=== PATIENT | female | born 1935 | race Caucasian/White ===

== ENCOUNTER 2021-02-20 16:18 | Inpatient (IN) | payer MEDICARE, BC ==
[~2021-02-20] VITALS: Ht 157.5 cm; Wt 62.1 kg
--- NOTE | 2021-02-20 16:41 | NUR ---
pili, sent by PMD for psych eval, takes zoya, son states "all of the sudden walks in the middle of the night, aaox3, breathing even and non labored, connected to monitor
--- NOTE | 2021-02-20 16:54 | NUR ---
URINE COLLECTED AND SENT TO LAB
--- NOTE | 2021-02-20 16:54 | NUR ---
lab at bedside
--- NOTE | 2021-02-20 17:05 | NUR ---
covid swab done and sent to lab
[2021-02-20 17:06] LABS: BASOPHILS # (AUTO) 0.1 K/uL (0.0-0.2); BASOPHILS % (AUTO) 0.7 % (0.0-2.0); EOSINOPHILS % (AUTO) 1.8 % (0.0-6.0); HEMATOCRIT 37 % (33-45); HEMOGLOBIN 11.6 g/dL (11.5-14.8); LYMPHOCYTES # (AUTO) 2.3 K/uL (0.8-4.8); MEAN CORPUSCULAR HGB CONC 32 g/dl (31.0-36.0); MEAN CORPUSCULAR VOLUME 91 fL (82-100); MONOCYTES # (AUTO) 0.8 K/uL (0.1-1.30); MONOCYTES % (AUTO) 8.4 % (2.0-12.0); NEUTROPHILS # (AUTO) 6.6 K/uL (1.8-8.9); NEUTROPHILS % (AUTO) 66.1 % (43.0-81.0); PLATELET COUNT (AUTO) 229 K/uL (150-450); RED BLOOD CELL COUNT(AUTO) 4.05 MIL/uL (4.0-5.2); WHITE BLOOD COUNT (AUTO) 9.9 K/uL (4.3-11.0)
[2021-02-20 17:19] LABS: CALCIUM, SERUM 8.7 mg/dL (8.5-10.1); CARBON DIOXIDE 30 mmol/L (21-32); CHLORIDE 107 mmol/L (98-107); CREATININE 1.2 mg/dL (0.6-1.3); GLUCOSE 129 mg/dL (74-106); POTASSIUM 4.1 mmol/L (3.5-5.1); SODIUM SERUM 142 mmol/L (136-145); UREA NITROGEN, BLOOD 21 mg/dL (7-18)
[2021-02-20 17:25] LABS: ALANINE AMINOTRANSFERASE 29 U/L (12-78); ALBUMIN 2.9 g/dL (3.4-5.0); ALCOHOL, BLOOD < 3 mg/dL (0-0); ALKALINE PHOSPHATASE 125 U/L (46-116); ASPARTATE AMINOTRANSFERASE 18 U/L (15-37); BILIRUBIN,DIRECT 0.1 mg/dL (0.0-0.2); BILIRUBIN,TOTAL 0.3 mg/dL (0.2-1.0)
--- NOTE | 2021-02-20 17:26 | NUR ---
DR NOVA AT BEDSIDE
[2021-02-20 17:30] LABS: BILIRUBIN,URINE NEGATIVE (NEGATIVE); COLOR,URINE YELLOW (YELLOW); LEUKOCYTE ESTERASE ,URINE NEGATIVE (NEGATIVE); NITRITE, URINE NEGATIVE (NEGATIVE); PROTEIN,URINE NEGATIVE (NEGATIVE); UGLUCOSE 500 MG/DL mg/dL (NEGATIVE); UROBILINOGEN,URINE 0.2 EU/dL (0.2)
[2021-02-20 17:32] LABS: ACETAMINOPHEN < 2 ug/ml (10-30)
--- NOTE | 2021-02-20 18:40 | NUR ---
CALLED CALENDER ROLL OPERATORANTOINETTE, AND LEFT VOICEMALE WITH PT STATUS
--- NOTE | 2021-02-20 19:13 | NUR ---
REPORT GIVEN TO SAMEERA LARA RN FOR MAURILIO
--- NOTE | 2021-02-20 19:14 | NUR ---
REC'D REPORT FROM CASSIDY ROACH FOR MAURILIO
--- NOTE | 2021-02-20 19:35 | NUR ---
ANTOINETTE CALLED BACK, STATES IS ON THE WAY
--- NOTE | 2021-02-20 21:31 | NUR ---
ANTOINETTE AT BEDSIDE
[2021-02-20] MEDS ORDERED: LORAZEPAM 1 MG TABLET PO ONE (22:00)
[2021-02-20] MEDS ORDERED: LORAZEPAM 0.5 MG TABLET ONE (22:06)
--- NOTE | 2021-02-20 22:41 | NUR ---
GAVE REPORT TO CASSIDY BOURGEOIS FOR MAURILIO
[2021-02-20 23:00] VITALS: BP 134/71
--- NOTE | 2021-02-20 23:00 | NUR ---
PT WS TRANSFERRED TO GPS UNIT IN STABLE CONDITION
--- NOTE | 2021-02-20 23:05 | NUR ---
GPS ADMISSION NOTE ADMITTED THIS 85-Y/O FEMALE, BIB FAMILY FROM HER HOME. ADMITTED ON 5150 FOR DTS/GD. PER HOLD, PT REPORTS SHE HAS NOT SLEPT IN DAYS AND REMEMBER SLEEP WALKING A COUPLE OF DAYS AGO. PT'S SON REPORTS THAT PT HAS HAVING INCREASE IN IRRITABILITY, NOT FOLLOWING DIRECTIVES AND RECENTLY LEFT THE HOME WITHOUT SUPERVISION AND WAS WALKING IN THE STREETS. UPON FACE TO FACE ASSESSMENT, PT IS ALERT AND ORIENTED X2, ANGRY MOOD, ARGUMENTATIVE, HYPERVERBAL, LOUD AND ANXIOUS. PT DENIES SI/HI/AVH AT THIS TIME. BOTH MD AWARE AND NOTIFIED OF THE ADMISSION. BELONGINGS AND CONTRABAND WERE DONE. SKIN ASSESSMENT DONE. WOUND CARE CONSULT TRIGGERED. PT'S RIGHTS DISCUSSED. PROVIDED PT WITH HANDBOOK AND MEDICATIONS GUIDE. ENVIRONMENTAL SAFETY CHECK DONE. VERBALIZATION OF FEELINGS ENCOURAGED. ORIENTED PT TO UNIT POLICY. NO ACUTE DISTRESS NOTED. VSS. PT DENIES ANY PAIN OR DISCOMFORT AT THIS TIME. BED IN LOWEST LOCKED POSITION, HOB ELEVATED, SIDE RAILS UP X2. WILL MONITOR Q15 MINS ROUNDS FOR SAFETY AND BEHAVIOR.
[2021-02-20] MEDS ORDERED: ONDA-97 PO (23:42)
[2021-02-21] MEDS ORDERED: MAGNESIUM HYDROXIDE 30 ML UDC PO PRN
[2021-02-21] MEDS ORDERED: MAG HYDROX/AL HYDROX/SIMETH 30 ML UDC PO PRN
[2021-02-21] MEDS ORDERED: DULO30CA52 PO (00:14)
[2021-02-21] MEDS ORDERED: ASCO-352 PO (00:17)
[2021-02-21] MEDS ORDERED: LISI-768 PO (00:18)
[2021-02-21] MEDS ORDERED: DIGO125T PO (00:19)
[2021-02-21] MEDS ORDERED: FAMO20TA8 PO (00:19)
[2021-02-21] MEDS ORDERED: PANT40TA49 PO (00:21)
[2021-02-21] MEDS ORDERED: MAGN400T8 PO (00:22)
[2021-02-21] MEDS: TEMAZEPAM 7.5 MG CAPSULE PO PRN (00:23)
[2021-02-21] MEDS ORDERED: DAPA10TA PO (00:23)
[2021-02-21] MEDS ORDERED: AMIO200T5 PO (00:24)
[2021-02-21] MEDS ORDERED: APIX5TAB PO (00:25)
[2021-02-21] MEDS ORDERED: METO25TA4 PO (00:27)
[2021-02-21] MEDS ORDERED: LATA2.5D15 EACHEYE (00:29)
[2021-02-21] MEDS ORDERED: ONDANSETRON 4 MG TAB.RAPDIS PO PRN (00:30)
[2021-02-21] MEDS ORDERED: BLOOD SUGAR DIAGNOSTIC 1 EACH STRIP IN ONE (00:30)
--- NOTE | 2021-02-21 06:06 | NUR ---
RN NOTES: PATIENT REFUSED AM LABS. PATIENT IS VERY UNCOOPERATIVE. WILL ENDORSE TO AM SHIFT FOR CONTINUITY OF CARE.
[2021-02-21 08:00] VITALS: BP 108/59
--- NOTE | 2021-02-21 08:00 | NUR ---
RN OPENING NOTE PATIENT IN BED RESTING COMFORTABLY. A/OX3. NO ACUTE DISTRESS NOTED. PATIENT REMAINS ALERT, DEPRESSED AND WITHDRAWN. PATIENT TO ATTEND IN GROUP ACTIVITIES. REORIENTATION PROVIDED. SAFETY PRECAUTIONS IN PLACE. WILL CONTINUE TO MONITOR Q15MIN ROUNDS FOR SAFETY AND BEHAVIOR.
[2021-02-21] MEDS: AMIODARONE HCL 200 MG TABLET PO SCH (08:39)
[2021-02-21] MEDS: PANTOPRAZOLE 40 MG TABLET.DR PO SCH (08:39)
[2021-02-21] MEDS: MAGNESIUM OXIDE 400 MG TABLET PO SCH ×2 (08:40→16:50)
[2021-02-21] MEDS: METOPROLOL SUCCINATE 25 MG TAB.SR.24H PO SCH (08:40)
[2021-02-21] MEDS: ASCORBIC ACID 500 MG TABLET PO SCH (08:40)
[2021-02-21] MEDS: FAMOTIDINE (20 MG) 20 MG TABLET PO SCH (08:40)
[2021-02-21] MEDS: LISINOPRIL (5MG) 5 MG TABLET PO SCH (08:40)
[2021-02-21] MEDS: APIXABAN 5 MG TABLET PO SCH ×2 (08:53→16:50)
--- NOTE | 2021-02-21 08:53 | NUR ---
RN NOTE PT CLEARED BY PHYSICAL THERAPY TO AMBULATE WITH FWW. PT IS STEADY WITH AMBULATORY DEVICE.
[2021-02-21] MEDS: LORAZEPAM 0.5 MG TABLET PO PRN (15:38)
[2021-02-21 16:00] VITALS: BP 136/89
--- NOTE | 2021-02-21 16:44 | NUR ---
RN-CO: Patient is disruptive to the unit, talks and screams loud for no reason. She is argumentative to staff. Refused to wear socks and be redirected. Extremely paranoid , refused to eat and take medications because she believes it is poisonous. She also refused to be followed , she is a fall risk. Patient refused Ativan PO. We will continue to monitor, and notify
--- NOTE | 2021-02-21 16:49 | NUR ---
RN NOTE PT SPIT OUT PO ATIVAN. ATIVAN UNABLE TO BE RETURNED DUE TO IT BEING CRUSHED AND SPIT OUT BY PT.
[2021-02-21] MEDS: LATANOPROST EYE DROP 0.005% 2.5 ML BOTTLE EACHEYE SCH (16:50)
--- NOTE | 2021-02-21 17:30 | NUR ---
RN-CO: Patient is talking to other patients not to take their medicines and don't eat because she believes that staff is putting poison to it.
--- NOTE | 2021-02-21 17:51 | NUR ---
RN-CO: Patient refused blooworks, we encouraged her several times but still refused.
[2021-02-21 19:23] VITALS: BP 140/77
[2021-02-21 20:20] VITALS: BP 140/77
[2021-02-21] MEDS: DIGOXIN 0.125 MG TABLET PO SCH (22:02)
[2021-02-21] MEDS: MIRTAZAPINE 15 MG TABLET PO SCH (22:14)
--- NOTE | 2021-02-21 23:58 | NUR ---
RN NOTE EPHRAIM BAEZ NP VISITED THE FLOOR, INFORMED EPHRAIM THAT PATIENT IS TAKING DIGOXIN BUT DIGOXIN LEVEL IS NOT DONE. PEHRAIM ORDERED DIGOXIN LEVEL IN AM. ORDER NOTED AND CARRIED OUT. WILL CONTINUE TO MONITOR THE PATIENT FOR ANY MAURILIO.
[2021-02-22] MEDS: TEMAZEPAM 7.5 MG CAPSULE PO PRN ×2 (00:58→21:41)
--- NOTE | 2021-02-22 01:00 | NUR ---
RN NOTE: INSOMNIA PATIENT C/O UNABLE TO SLEEP AND WANTED TO TAKE SLEEPING MEDICINE. PRN RESTORIL 7.5 MG 1 CAP PO ADMINISTERED ORDERED FOR INSOMNIA. WILL CONTINUE TO MONITOR FOR ANY CHANGES.
[2021-02-22] MEDS: LORAZEPAM 0.5 MG TABLET PO PRN (04:08)
--- NOTE | 2021-02-22 04:08 | NUR ---
GPS-RN NOTES: ANXIETY PATIENT IS VERY ANXIOUS, SCREAMING AND YELLING INTERMITTENTLY. PRN ATIVAN 0.5MG PO GIVEN. WILL CONTINUE TO MONITOR PT'S SAFETY.
--- NOTE | 2021-02-22 06:45 | NUR ---
RN NOTE BLOOD DRAW DONE BY Onzo FOR DIGOXIN LEVEL.
[2021-02-22 07:16] LABS: BASOPHILS % (AUTO) 0.4 % (0.0-2.0); EOSINOPHILS % (AUTO) 3.4 % (0.0-6.0); HEMATOCRIT 36 % (33-45); HEMOGLOBIN 11.8 g/dL (11.5-14.8); LYMPHOCYTES % (AUTO) 38.1 % (20.0-44.0); MEAN CORPUSCULAR HGB CONC 33 g/dl (31.0-36.0); MEAN CORPUSCULAR VOLUME 88 fL (82-100); MONOCYTES # (AUTO) 0.7 K/uL (0.1-1.30); MONOCYTES % (AUTO) 8.9 % (2.0-12.0); NEUTROPHILS # (AUTO) 3.8 K/uL (1.8-8.9); NEUTROPHILS % (AUTO) 49.2 % (43.0-81.0); PLATELET COUNT (AUTO) 244 K/uL (150-450); RED BLOOD CELL COUNT(AUTO) 4.08 MIL/uL (4.0-5.2); WHITE BLOOD COUNT (AUTO) 7.8 K/uL (4.3-11.0)
[2021-02-22 07:24] LABS: CALCIUM, SERUM 9.4 mg/dL (8.5-10.1); POTASSIUM 3.8 mmol/L (3.5-5.1)
[2021-02-22 08:00] VITALS: BP 125/67
[2021-02-22 08:04] LABS: DIGOXIN 0.87 ng/mL (0.90-2.00)
[2021-02-22] MEDS: MAGNESIUM OXIDE 400 MG TABLET PO SCH ×2 (09:11→17:00)
[2021-02-22] MEDS: ASCORBIC ACID 500 MG TABLET PO SCH (09:11)
[2021-02-22] MEDS: PANTOPRAZOLE 40 MG TABLET.DR PO SCH (09:11)
[2021-02-22] MEDS: FAMOTIDINE (20 MG) 20 MG TABLET PO SCH (09:12)
[2021-02-22] MEDS: METOPROLOL SUCCINATE 25 MG TAB.SR.24H PO SCH (09:12)
[2021-02-22] MEDS: AMIODARONE HCL 200 MG TABLET PO SCH (09:12)
[2021-02-22] MEDS: LISINOPRIL (5MG) 5 MG TABLET PO SCH (09:13)
[2021-02-22] MEDS: APIXABAN 5 MG TABLET PO SCH ×2 (09:14→17:00)
--- NOTE | 2021-02-22 10:58 | NUR ---
MOSES Initial Discharge Plan: Patient currently resides at home located at [address] [place] [address]; ([phone]). Patient would want to return back home upon discharged. MOSES will work with the MD and treatment team to help coordinate appropriate discharge.
[2021-02-22] MEDS: SERTRALINE HCL 25 MG TABLET PO SCH (12:54)
--- NOTE | 2021-02-22 14:29 | NUR ---
MOSES Family Contact: MOSES attempted to contact patient's son Corey ([phone]) to gather collateral, however, was unavailable and MOSES left a voicemail.
--- NOTE | 2021-02-22 15:02 | NUR ---
MOSES Family Contact: SW contacted patient's son Corey ([phone]) and Karthik ([phone]) and was on a joined called. Family stated that they would want pt to go to a SNF because pt does not receive enough care at home. Pt has a caregiver at [facility] for only 8 hours a day and would come see pt 4-5 days a week.
--- NOTE | 2021-02-22 15:56 | NUR ---
SS group note: SW met with pt. in the activity room and invited him to participate in group about: "What they hope will improve after their treatment at [facility]". Pt. is sitting in gerichair. Pt. is not appropriate for group at this time as he is unable to engage in meaningful conversation. SW will monitor pt. and invite pt. to the next group if appropriate.
[2021-02-22 16:00] VITALS: BP 147/90
[2021-02-22] MEDS: LATANOPROST EYE DROP 0.005% 2.5 ML BOTTLE EACHEYE SCH (17:04)
[2021-02-22 19:51] VITALS: BP 122/71
[2021-02-22] MEDS: MIRTAZAPINE 15 MG TABLET PO SCH (21:41)
[2021-02-22] MEDS: DIGOXIN 0.125 MG TABLET PO SCH (21:41)
[2021-02-23] MEDS: PANTOPRAZOLE 40 MG TABLET.DR PO SCH (07:30)
[2021-02-23 08:00] VITALS: BP 123/69
[2021-02-23] MEDS: AMIODARONE HCL 200 MG TABLET PO SCH (09:25)
[2021-02-23] MEDS: ASCORBIC ACID 500 MG TABLET PO SCH (09:26)
[2021-02-23] MEDS: MAGNESIUM OXIDE 400 MG TABLET PO SCH ×3 (09:26→17:00)
[2021-02-23] MEDS: FAMOTIDINE (20 MG) 20 MG TABLET PO SCH (09:26)
[2021-02-23] MEDS: METOPROLOL SUCCINATE 25 MG TAB.SR.24H PO SCH (09:27)
[2021-02-23] MEDS: LISINOPRIL (5MG) 5 MG TABLET PO SCH (09:27)
[2021-02-23] MEDS: APIXABAN 5 MG TABLET PO SCH ×3 (09:28→17:00)
--- NOTE | 2021-02-23 10:47 | NUR ---
WOUND CARE CONSULT: PT PRESENTS WITH INTACT SKIN. PT NOTED TO BE UNCOOPERATIVE AND AGITATED AT TIMES. WILL SEE PRN. Addendum: 02/23/21 at 1049 by ROGER KEE WNDNU [facility] NOTED TO RT FOOT, PRESENT ON ADMISSION.
--- NOTE | 2021-02-23 10:51 | NUR ---
SNF Referral: MOSES sent clinicals to Alexa barajas from [facility] [phone] for placement option. MOSES sent H & P, progress notes, and medication list.
[2021-02-23] MEDS: SERTRALINE HCL 25 MG TABLET PO SCH (12:21)
[2021-02-23 15:48] VITALS: BP 121/70
[2021-02-23] MEDS: LATANOPROST EYE DROP 0.005% 2.5 ML BOTTLE EACHEYE SCH (17:04)
[2021-02-23 20:01] VITALS: BP 124/70
[2021-02-23] MEDS: DIGOXIN 0.125 MG TABLET PO SCH (21:35)
--- NOTE | 2021-02-23 23:00 | NUR ---
RN GPS NOTE: PATIENT GIVEN DIGOXIN. ACCIDENTALLY PULLED OUT AN EXTRA TAB AND OPENED BOTH IT WAS ORDERED 1 TAB. WASTED 1 TAB OF DIGOXIN AND DOCUMENTED IN OMNICELL.
[2021-02-24] MEDS: LORAZEPAM 0.5 MG TABLET PO PRN ×2 (02:47→11:58)
[2021-02-24] MEDS: ACETAMINOPHEN 325 MG TABLET PO PRN (04:11)
--- NOTE | 2021-02-24 06:39 | NUR ---
RN NOTE URINE SPECIMEN DROPPED OFF AT LAB FOR URINALYSIS PROFILE ORDERED BY Royce STEARNS WILL ENDORSE TO AM NURSE.
[2021-02-24 07:00] LABS: BILIRUBIN,URINE SMALL (NEGATIVE); COLOR,URINE YELLOW (YELLOW); LEUKOCYTE ESTERASE ,URINE NEGATIVE (NEGATIVE); NITRITE, URINE NEGATIVE (NEGATIVE); PROTEIN,URINE TRACE mg/dl (NEGATIVE); UGLUCOSE NEGATIVE (NEGATIVE); UROBILINOGEN,URINE 0.2 EU/dL (0.2)
[2021-02-24 07:43] LABS: RBC,URINE 0-2 /HPF (0-2)
[2021-02-24 07:44] LABS: BACTERIA,URINE Rare /HPF (None Seen); MUCUS,URINE Few /LPF (None Seen); SQUAMOUS EPITHELIAL CELL,UR Few /HPF (None Seen)
[2021-02-24 08:00] VITALS: BP 130/57
[2021-02-24] MEDS: PANTOPRAZOLE 40 MG TABLET.DR PO SCH (08:20)
[2021-02-24] MEDS: FAMOTIDINE (20 MG) 20 MG TABLET PO SCH (08:20)
[2021-02-24] MEDS: MAGNESIUM OXIDE 400 MG TABLET PO SCH ×2 (08:22→17:00)
[2021-02-24] MEDS: METOPROLOL SUCCINATE 25 MG TAB.SR.24H PO SCH (08:22)
[2021-02-24] MEDS: AMIODARONE HCL 200 MG TABLET PO SCH (08:22)
[2021-02-24] MEDS: LISINOPRIL (5MG) 5 MG TABLET PO SCH (08:22)
[2021-02-24] MEDS: APIXABAN 5 MG TABLET PO SCH ×2 (08:23→17:00)
[2021-02-24] MEDS: ASCORBIC ACID 500 MG TABLET PO SCH (08:24)
--- NOTE | 2021-02-24 11:59 | NUR ---
RN NOTES PT VERY ANXIOUS AND RESTLESS. VERBALLY ABUSIVE TO STAFF AND UNCOOPERATIVE. PRN ATIVAN 0.5 MG TAKEN OUT FROM THE OMNICELL AND OPENED BUT PT REFUSED TO TAKE MEDICATION. ATIVAN WASTED WITH CASSIDY FARMER. WILL CONTINUE TO MONITOR.
--- NOTE | 2021-02-24 12:45 | NUR ---
MOSES Family Contact: MOSES contacted patient's son Corey ([phone]) and notified that pt is accepted at [facility] and was agreeable with this.
--- NOTE | 2021-02-24 12:45 | NUR ---
SNF Referral: SW sent clinicals to Alexa barajas from [facility] [phone] who stated pt is accepted.
[2021-02-24] MEDS: SERTRALINE HCL 25 MG TABLET PO SCH (13:00)
[2021-02-24 16:00] VITALS: BP 134/68
--- NOTE | 2021-02-24 17:54 | NUR ---
RN NOTES RECEIVED CALL FROM MIKEY MICHELE WITH ORDER TO DO PT RE-EVALUATION. ALSO INFORMED HIM THAT URINE WBC WAS 6-10. NO NEW ORDER MADE AT THIS TIME.
[2021-02-24] MEDS: LATANOPROST EYE DROP 0.005% 2.5 ML BOTTLE EACHEYE SCH (18:00)
[2021-02-24] MEDS: DIGOXIN 0.125 MG TABLET PO SCH (22:26)
[2021-02-24] MEDS: QUETIAPINE FUMARATE 25 MG TABLET PO SCH (22:27)
[2021-02-24] MEDS ORDERED: QUETIAPINE FUMARATE 25 MG TABLET PO PRN (22:30)
[2021-02-25 06:47] LABS: BASOPHILS % (AUTO) 0.6 % (0.0-2.0); EOSINOPHILS % (AUTO) 2.8 % (0.0-6.0); HEMATOCRIT 40 % (33-45); HEMOGLOBIN 13.1 g/dL (11.5-14.8); LYMPHOCYTES # (AUTO) 1.8 K/uL (0.8-4.8); MEAN CORPUSCULAR HGB CONC 33 g/dl (31.0-36.0); MEAN CORPUSCULAR VOLUME 89 fL (82-100); MONOCYTES # (AUTO) 0.5 K/uL (0.1-1.30); MONOCYTES % (AUTO) 8.3 % (2.0-12.0); NEUTROPHILS # (AUTO) 3.4 K/uL (1.8-8.9); NEUTROPHILS % (AUTO) 58.3 % (43.0-81.0); PLATELET COUNT (AUTO) 243 K/uL (150-450); RED BLOOD CELL COUNT(AUTO) 4.48 MIL/uL (4.0-5.2); WHITE BLOOD COUNT (AUTO) 5.8 K/uL (4.3-11.0)
[2021-02-25 08:11] LABS: ALBUMIN 2.9 g/dL (3.4-5.0); BILIRUBIN,TOTAL 0.6 mg/dL (0.2-1.0); CALCIUM, SERUM 8.9 mg/dL (8.5-10.1); CREATININE 0.9 mg/dL (0.6-1.3); POTASSIUM 3.8 mmol/L (3.5-5.1); TOTAL PROTEIN, SERUM 7.1 g/dL (6.4-8.2)
[2021-02-25 08:57] VITALS: BP 143/67
[2021-02-25] MEDS: ASCORBIC ACID 500 MG TABLET PO SCH (09:02)
[2021-02-25] MEDS: FAMOTIDINE (20 MG) 20 MG TABLET PO SCH (09:02)
[2021-02-25] MEDS: PANTOPRAZOLE 40 MG TABLET.DR PO SCH (09:02)
[2021-02-25] MEDS: MAGNESIUM OXIDE 400 MG TABLET PO SCH ×2 (09:02→16:17)
[2021-02-25] MEDS: METOPROLOL SUCCINATE 25 MG TAB.SR.24H PO SCH (09:02)
[2021-02-25] MEDS: AMIODARONE HCL 200 MG TABLET PO SCH (09:03)
[2021-02-25] MEDS: LISINOPRIL (5MG) 5 MG TABLET PO SCH (09:03)
[2021-02-25] MEDS: APIXABAN 5 MG TABLET PO SCH ×2 (09:04→16:17)
--- NOTE | 2021-02-25 13:00 | NUR ---
RN NOTES DR. CERVANTES AT BEDSIDE TO SEE THE PATIENT.
--- NOTE | 2021-02-25 13:44 | NUR ---
Court Hearing: Patient's court hearing for 0200 was today and it was upheld for GD.
--- NOTE | 2021-02-25 14:44 | NUR ---
RN NOTES PATIENT'S SON GAL ISAAC ([id number]) WOULD LIKE TO SPEAK WITH DR. CERVANTES W/IN THE NEXT 30MINS; EXPLAINED THAT MD ALREADY LEFT THE HOSPITAL, SON STILL INSISTED TO TALK TO HER. WILL TRY TO PAGE .
--- NOTE | 2021-02-25 15:00 | NUR ---
RN NOTES DR. ROTHMAN AT BEDSIDE TO EVALUATE PATIENT FOR NEURO CONSULT.
[2021-02-25 16:00] VITALS: BP 145/67
--- NOTE | 2021-02-25 16:44 | NUR ---
RN NOTES SPOKE W/ KASEY FROM RADIOLOGY AND INQUIRED ABOUT PATIENT GOING FOR CT SCAN PROCEDURE TODAY. EXPLAINED TO TIN ROOFER THAT PATIENT IS MOVING CONSTANTLY IN BED AND REFUSED TO TAKE ANY PRN MEDICATION AT THIS TIME PATIENT IS NON-COMPLIANT AND REFUSES. WILL ENDORSE TO SCHOOL TRANSPORTATION SUPERVISOR RN IF PRN MEDICATION CAN BE GIVEN PRIOR TO CT SCAN; PER TIN ROOFER, NURSE TO CALL RADIOLOGY WHEN PATIENT IS MORE COOPERATIVE FOR THE PROCEDURE.
[2021-02-25] MEDS: LATANOPROST EYE DROP 0.005% 2.5 ML BOTTLE EACHEYE SCH (17:38)
--- NOTE | 2021-02-25 18:43 | NUR ---
RN NOTES PATIENT'S FRIEND, DAKOTA, IN THE UNIT TO VISIT PATIENT. PATIENT IS UP IN CHAIR CLOSE TO THE DINING AREA.
--- NOTE | 2021-02-25 19:30 | NUR ---
GPS RN NOTE, RECEIVED PATIENT AWAKE AND IN BED, NO S/S OR COMPLAINTS OF PAIN AT THIS TIME. PATIENT IS DISPLAYING NO S/S OF APPARENT DISTRESS AT THIS TIME. PATIENT BREATHING IS UNLABORED WITH EQUAL RISE AND FALL OF THE CHEST. PATIENT IS ALERT AND ORIENTED X 1 ON ROOM AIR WITH A SPO2 99%. PATIENT IS SELECTIVE WITH MEDICATIONS, DELUSIONAL, CONFUSED, YELLING AT TIMES, AND COOPERATIVE. PATIENT DENIES SUICIDAL AND HOMICIDAL IDEATIONS AT THIS TIME. PATIENT ASSISTED WITH TURNING AND REPOSITIONING Q2HR AND PRN FOR COMFORT AND CIRCULATION. PATIENT HAS NO NEEDS AT THIS TIME. PATIENT EDUCATED ON THE USE OF THE CALL CHUA. PATIENT BED SIDE RAILS UP X 2 FOR SAFETY. PATIENT BED IS LOCKED, LOW, WITH BED ALARM ON. WILL CONTINUE TO MONITOR THIS PATIENT Q15 MINUTES WITH THE HELP OF STAFF TO MAINTAIN SAFETY.
[2021-02-25 20:38] VITALS: BP 126/68
[2021-02-25] MEDS: QUETIAPINE FUMARATE 25 MG TABLET PO SCH ×2 (21:29→21:56)
[2021-02-25] MEDS: DIGOXIN 0.125 MG TABLET PO SCH ×2 (21:30→21:56)
--- NOTE | 2021-02-25 21:56 | NUR ---
GPS RN NOTE, PATIENT REFUSED DIGOXIN 0.125MG PO HS AND SEROQUEL 12.5MG PO HS. OFFERED THREE TIMES AND STILL PATIENT REFUSED WHILE SHACKING HER HEAD NO AND TIGHTENING HER LIPS CLOSED. EDUCATED PATIENT ON THE RISKS AND BENEFITS OF TAKING AND REFUSING DIGOXIN AND SEROQUEL. WILL CONTINUE TO MONITOR THIS PATIENT WITH THE HELP OF STAFF.
--- NOTE | 2021-02-26 01:30 | NUR ---
GPS RN NOTE, PATIENT FOUND SITTING ON FLOOR NEXT TO BED WITH BED ALARM SOUNDING. PATIENT DENIES HITTING HEAD. PATIENT HAS A COMPLAINT OF LEFT HIP PAIN AT 8 OUT OF 10 ON THE PAIN SCALE. PAGED [facility] AND INFORMED SIVA LIVE DNP OF MY FINDINGS. SIVA LIVE DNP ORDERED LEFT HIP X-RAY ONE VIEW AND NORCO 10-325 1 TAB PO Q6HR PRN. ALL ORDERS NOTED AND CARRIED OUT WILL CONTINUE TO MONITOR THIS PATIENT WITH THE HELP OF STAFF.
--- NOTE | 2021-02-26 02:19 | NUR ---
GPS RN NOTE, PATIENT RESULTS OF LEFT X-RAY ARE FOLLOWS = NO DEFINITE LEFT HIP FRACTURE. I ASKED THIS PATIENT WHAT HAPPENED AND WHY WAS SHE FOUND ON THE FLOOR. PATIENT STATES, " I SAT ON THE FLOOR ON PURPOSE WITH OUT CALLING FOR HELP AND WHEN YOU ARRIVED IN THE ROOM DUE TO THE BED ALARM SOUNDING I LIED AND FAKED THE PAIN IN MY HIP SO I COULD BE DISCHARGED OFF THIS FLOOR ". PATIENT DENIES ANY PAIN AT THIS TIME. WILL CONTINUE TO MONITOR THIS PATIENT WITH THE HELP OF STAFF.
[2021-02-26] MEDS ORDERED: HYDROCODONE/APAP 10/325MG TABLET PO PRN (02:30)
[2021-02-26] MEDS: PANTOPRAZOLE 40 MG TABLET.DR PO SCH (07:30)
[2021-02-26 08:00] VITALS: BP 134/68
[2021-02-26] MEDS: LISINOPRIL (5MG) 5 MG TABLET PO SCH (09:00)
[2021-02-26] MEDS: APIXABAN 5 MG TABLET PO SCH ×2 (09:00→17:00)
[2021-02-26] MEDS: AMIODARONE HCL 200 MG TABLET PO SCH (09:00)
[2021-02-26] MEDS: ASCORBIC ACID 500 MG TABLET PO SCH (09:00)
[2021-02-26] MEDS: MAGNESIUM OXIDE 400 MG TABLET PO SCH ×2 (09:00→17:00)
[2021-02-26] MEDS: METOPROLOL SUCCINATE 25 MG TAB.SR.24H PO SCH (09:00)
[2021-02-26] MEDS: FAMOTIDINE (20 MG) 20 MG TABLET PO SCH (09:00)
--- NOTE | 2021-02-26 09:33 | NUR ---
GPS/RN PT REFUSED MEDS IN AM OFFERED X3
[2021-02-26] MEDS ORDERED: OLANZAPINE 10 MG VIAL IM ONE (12:00)
--- NOTE | 2021-02-26 12:01 | NUR ---
GPS/RN PT IS AGITATED, SCREAMING, INSULTING THE OTHER PATIENTS; THREW THE FOOD FROM THE TABLE ON THE FLOOR AND FORCEFULLY PULLED THE HAIR OF THE NURSE TRYING TO CLEAN THE FLOOR. DR. CERVANTES CALLED FOR THE ORDERS. ORDERS RECEIVED AND CARRIED OUT
--- NOTE | 2021-02-26 12:18 | NUR ---
PATIENT IS VERY UNSTABLE/MOVING AND UNABLE TO HOLDS STILL. SO NO MRI WAS DONE.
[2021-02-26] MEDS ORDERED: LORAZEPAM 0.5 MG TABLET PO ONE (14:00)
--- NOTE | 2021-02-26 14:52 | NUR ---
MOSES Family Contact: MOSES contacted patient's son Corey ([phone]) and notified of the doctor filing for a riese hearing. MOSES left a detailed voicemail.
--- NOTE | 2021-02-26 15:09 | NUR ---
Received a call from Neyda from the court and scheduled for the Riese hearing for Monday ( February @ 9:30 AM) and Dr. Liu is aware.
[2021-02-26 16:00] VITALS: BP 125/68
[2021-02-26] MEDS: LATANOPROST EYE DROP 0.005% 2.5 ML BOTTLE EACHEYE SCH (17:07)
--- NOTE | 2021-02-26 17:08 | NUR ---
GPS/RN PT REFUSED 1700 MEDS OFFERED X3
[2021-02-26 20:00] VITALS: BP 149/51
[2021-02-26] MEDS: DIGOXIN 0.125 MG TABLET PO SCH (21:12)
[2021-02-26] MEDS: QUETIAPINE FUMARATE 25 MG TABLET PO SCH (21:12)
--- NOTE | 2021-02-26 22:12 | NUR ---
REFUSED DIGOXIN AND SEROQUEL, PATIENT DUMPED PILLS IN WATER
[2021-02-27] MEDS: PANTOPRAZOLE 40 MG TABLET.DR PO SCH (07:30)
[2021-02-27 08:00] VITALS: BP 135/70
[2021-02-27] MEDS: APIXABAN 5 MG TABLET PO SCH ×2 (08:27→17:00)
[2021-02-27] MEDS: AMIODARONE HCL 200 MG TABLET PO SCH (08:27)
[2021-02-27] MEDS: ASCORBIC ACID 500 MG TABLET PO SCH (08:28)
[2021-02-27] MEDS: METOPROLOL SUCCINATE 25 MG TAB.SR.24H PO SCH (08:28)
[2021-02-27] MEDS: MAGNESIUM OXIDE 400 MG TABLET PO SCH ×2 (08:28→17:00)
[2021-02-27] MEDS: LISINOPRIL (5MG) 5 MG TABLET PO SCH (08:28)
[2021-02-27] MEDS: FAMOTIDINE (20 MG) 20 MG TABLET PO SCH (08:28)
[2021-02-27 16:00] VITALS: BP 143/71
[2021-02-27] MEDS: LATANOPROST EYE DROP 0.005% 2.5 ML BOTTLE EACHEYE SCH (18:00)
--- NOTE | 2021-02-27 19:15 | NUR ---
RN NOTES: PT. BEHAVIOR THROUGH OUT SHIFT ANXIOUS EASILY AGITATED PARANOID UNCOOPERTIVE, CONFUSED DISORGANIZED NON COMPLIANT WITH DIRECTIONS AND PLAN OF CARE . PT. REFUSED TO STAYING IN THE BED ATTEMPTING TO GETING OUT THE BED VERY OFTEN REFUSING TO STAY IN BED , PT. GAIT VERY UNSTEADY AND HIGH FALL RISKS, PT. OBSERVED CLOSELY ALL NEEDS WERE MET, BANGING SIDE RAILS ASSISTED TO GERICAHIR BUT BANGING MIMI CHAIR TRAY, VISUALLY NOTED ,PT. SKIN IS VERY FRAGILE , EASILY OPEN AND MULTIPLE SKIN DISCOLORATIONS FROM PREVIOUSLY , PRN'S OFFERED BUT PT. REFUSED ,WILL CONTINUE WITH PLAN OF CARE.
--- NOTE | 2021-02-27 19:30 | NUR ---
RN NOTES: PT. BEHAVIOR THROUGH OUT SHIFT ANXIOUS EASILY AGITATED PARANOID UNCOOPERTIVE, CONFUSED DISORGANIZED NON COMPLIANT WITH DIRECTIONS AND PLAN OF CARE . PT. REFUSED TO STAYING IN THE BED ATTEMPTING TO GETING OUT THE BED VERY OFTEN REFUSING TO STAY IN BED , PT. GAIT VERY UNSTEADY AND HIGH FALL RISKS, PT. OBSERVED CLOSELY ALL NEEDS WERE MET, BANGING SIDE RAILS ASSISTED TO GERICAHIR BUT BANGING MIMI CHAIR TRAY, PT. SKIN IS VERY FRAGILE , EASILY OPEN AND MULTIPLE SKIN DISCOLORATIONS FROM PREVIOUSLY , PRN OFFERDED PT. REFUSED , WILL CONTINUE WITH PLAN OF CARE.
[2021-02-27 20:15] VITALS: BP 149/90
[2021-02-27] MEDS: QUETIAPINE FUMARATE 25 MG TABLET PO SCH (21:45)
[2021-02-27] MEDS: DIGOXIN 0.125 MG TABLET PO SCH (21:45)
--- NOTE | 2021-02-27 21:46 | NUR ---
RN NOTES : PT. REFUSED NIGHT SCHEDULE MEDS , REFUSED DIGOXIN AND SEROQUEL, ENCOURAGED X3, PT. STRONGLY REFSUED, PER PT STATES . I AM NOT TAKING THIS PILLS BUT NURSE YOU CAN TAKE THIS MEDICATIONS FOR YOUR SELF , WILL CONTNUITY WITH CARE
[2021-02-28] MEDS ORDERED: Z GUARD REMEDY 2 OZ OINT TP PRN (05:30)
--- NOTE | 2021-02-28 06:34 | NUR ---
RN NOTES: PT. BEHAVIOR THROUGH OUT SHIFT ANXIOUS EASILY AGITATED PARANOID UNCOOPERTIVE, CONFUSED DISORGANIZED NON COMPLIANT WITH DIRECTIONS AND PLAN OF CARE . PT. REFUSED TO STAYING IN THE BED ATTEMPTING TO GETING OUT THE BED VERY OFTEN REFUSING TO STAY IN BED , PT. GAIT VERY UNSTEADY AND HIGH FALL RISKS, PT. OBSERVED CLOSELY ALL NEEDS WERE MET, BANGING SIDE RAILS ASSISTED TO GERICAHIR BUT BANGING MIMI CHAIR TRAY, PT. REFUSED SKIN ASSESSMENT AT THIS TIME , WILL CONTINUE WITH PLAN OF CARE.
[2021-02-28] MEDS: PANTOPRAZOLE 40 MG TABLET.DR PO SCH (07:30)
[2021-02-28 08:00] VITALS: BP 143/79
[2021-02-28] MEDS: AMIODARONE HCL 200 MG TABLET PO SCH (08:33)
[2021-02-28] MEDS: APIXABAN 5 MG TABLET PO SCH ×2 (08:34→16:31)
[2021-02-28] MEDS: METOPROLOL SUCCINATE 25 MG TAB.SR.24H PO SCH (08:34)
[2021-02-28] MEDS: FAMOTIDINE (20 MG) 20 MG TABLET PO SCH (08:34)
[2021-02-28] MEDS: ASCORBIC ACID 500 MG TABLET PO SCH (08:34)
[2021-02-28] MEDS: LISINOPRIL (5MG) 5 MG TABLET PO SCH (08:34)
[2021-02-28] MEDS: MAGNESIUM OXIDE 400 MG TABLET PO SCH ×2 (08:34→16:31)
[2021-02-28] MEDS: Z GUARD REMEDY 2 OZ OINT TP SCH (09:02)
[2021-02-28 16:00] VITALS: BP 107/53
[2021-02-28] MEDS: LATANOPROST EYE DROP 0.005% 2.5 ML BOTTLE EACHEYE SCH (16:31)
--- NOTE | 2021-02-28 16:32 | NUR ---
GPS/RN PT REFUSED PO MEDS TODAY OFFERED X3
[2021-02-28 19:50] VITALS: BP 138/78
[2021-02-28] MEDS: QUETIAPINE FUMARATE 25 MG TABLET PO SCH (20:26)
[2021-02-28] MEDS: DIGOXIN 0.125 MG TABLET PO SCH (20:28)
--- NOTE | 2021-02-28 22:00 | NUR ---
Patient was compliant with night meds and pain medication because her lower back was hurting. PRN Pain medication effective.
--- NOTE | 2021-03-01 01:35 | NUR ---
Patient refused skin assessment and refused PRN medication for agitation. Patient has been yelling out, banging on gerichair, restless, confused, threw water on the floor.
[2021-03-01] MEDS: PANTOPRAZOLE 40 MG TABLET.DR PO SCH (07:59)
[2021-03-01 08:00] VITALS: BP 130/62
--- NOTE | 2021-03-01 08:14 | NUR ---
Riese Hearing: MOSES contacted patient's son Corey ([phone]) and notified of the riese hearing. He stated for Dr. Liu to proceed with the hearing.
--- NOTE | 2021-03-01 08:37 | NUR ---
[facility]: MOSES sent clinicals to [facility] ([phone]) ([phone]) for placement option.
[2021-03-01] MEDS: LISINOPRIL (5MG) 5 MG TABLET PO SCH (09:30)
[2021-03-01] MEDS: ASCORBIC ACID 500 MG TABLET PO SCH (09:30)
[2021-03-01] MEDS: Z GUARD REMEDY 2 OZ OINT TP SCH (09:30)
[2021-03-01] MEDS: FAMOTIDINE (20 MG) 20 MG TABLET PO SCH (09:31)
[2021-03-01] MEDS: AMIODARONE HCL 200 MG TABLET PO SCH (09:31)
[2021-03-01] MEDS: METOPROLOL SUCCINATE 25 MG TAB.SR.24H PO SCH (09:32)
[2021-03-01] MEDS: MAGNESIUM OXIDE 400 MG TABLET PO SCH ×2 (09:32→17:00)
[2021-03-01] MEDS: APIXABAN 5 MG TABLET PO SCH ×2 (09:33→17:00)
[2021-03-01] MEDS ORDERED: OLANZAPINE 10 MG VIAL IM PRN (10:00)
[2021-03-01] MEDS: QUETIAPINE FUMARATE 25 MG TABLET PO SCH ×2 (11:28→21:05)
[2021-03-01 11:45] LABS: BASOPHILS % (AUTO) 0.7 % (0.0-2.0); EOSINOPHILS % (AUTO) 3.2 % (0.0-6.0); HEMATOCRIT 42 % (33-45); HEMOGLOBIN 13.4 g/dL (11.5-14.8); LYMPHOCYTES % (AUTO) 31.6 % (20.0-44.0); MEAN CORPUSCULAR HGB CONC 32 g/dl (31.0-36.0); MEAN CORPUSCULAR VOLUME 89 fL (82-100); MONOCYTES # (AUTO) 0.6 K/uL (0.1-1.30); MONOCYTES % (AUTO) 9.3 % (2.0-12.0); NEUTROPHILS # (AUTO) 3.5 K/uL (1.8-8.9); NEUTROPHILS % (AUTO) 55.2 % (43.0-81.0); PLATELET COUNT (AUTO) 252 K/uL (150-450); RED BLOOD CELL COUNT(AUTO) 4.66 MIL/uL (4.0-5.2); WHITE BLOOD COUNT (AUTO) 6.4 K/uL (4.3-11.0)
[2021-03-01 12:00] LABS: ALBUMIN 3.2 g/dL (3.4-5.0); BILIRUBIN,TOTAL 0.5 mg/dL (0.2-1.0); CALCIUM, SERUM 8.9 mg/dL (8.5-10.1); MAGNESIUM 1.9 mg/dL (1.8-2.4); POTASSIUM 3.1 mmol/L (3.5-5.1); TOTAL PROTEIN, SERUM 7.2 g/dL (6.4-8.2)
--- NOTE | 2021-03-01 12:35 | NUR ---
DR BRUNNER CONTACTED DUE TO POTASSIUM OF 3.1. NEW ORDERS GIVEN AND PLACED FOR POTASSIUM CHLORIDE 40 MEQ PO ONCE.
[2021-03-01] MEDS: POTASSIUM CHLORIDE 20 MEQ POWDER PACKET PO ONE ×2 (13:00→13:46)
--- NOTE | 2021-03-01 13:30 | NUR ---
Individual Therapy: SW met with pt. in the activity room. Pt. is not appropriate for group at this time. SW will monitor pt. and invite pt. to the next group if appropriate.
[2021-03-01 16:00] VITALS: BP 137/72
[2021-03-01] MEDS: LATANOPROST EYE DROP 0.005% 2.5 ML BOTTLE EACHEYE SCH (17:10)
--- NOTE | 2021-03-01 17:41 | NUR ---
INFORMED DR BRUNNER THAT PATIENT DOES NOT EAT OR DRINK AT THIS TIME. PT ALSO REFUSED ALL PM MEDS INCLUDING THE 40 MEQ POTASSIUM PT'S K IS 3.1. NNO GIVEN FROM DR BRUNNER.
[2021-03-01 19:58] VITALS: BP 145/77
[2021-03-01] MEDS: DIGOXIN 0.125 MG TABLET PO SCH (21:05)
--- NOTE | 2021-03-02 00:22 | NUR ---
RN GPS NOTE: RECEIVED PHONE CALL FROM DR. CERVANTES REGARDING UPDATE OF PATIENT. RECEIVED INSTRUCTIONS TO SKIP IM BACK UP INJECTION IF PATIENT REFUSES HER BED TIME MEDICATIONS. OFFERED PATIENT TO TAKE MEDICATIONS WITH APPLE SAUCE, WHICH SHE TOOK. OFFERED PATIENT A SANDWICH TO EAT, WHICH SHE ONLY TOOK A FEW BITES OFF OF IT. ALSO OFFERED PATIENT TO DRINK SOME JUICE AND WATER, WHICH SHE ONLY TOOK SIPS FROM. ASSISTED PATIENT TO EAT SOME JELLO, BUT PATIENT SPAT IT OUT 10 MINUTES LATER AFTER REVEALING SHE DID NOT SWALLOW IT. DR. CERVANTES CALLED AGAIN FOR UPDATE. RECEIVED INSTRUCTIONS TO CLOSELY MONITOR PATIENT DURING THE NIGHT. PATIENT IS STILL AWAKE AT THIS TIME TALKING TO HERSELF.
[2021-03-02 08:00] VITALS: BP 124/77
[2021-03-02] MEDS: QUETIAPINE FUMARATE 25 MG TABLET PO SCH ×2 (08:03→21:38)
[2021-03-02] MEDS: MAGNESIUM OXIDE 400 MG TABLET PO SCH ×2 (08:08→16:49)
[2021-03-02] MEDS: LISINOPRIL (5MG) 5 MG TABLET PO SCH (08:08)
[2021-03-02] MEDS: ASCORBIC ACID 500 MG TABLET PO SCH (08:08)
[2021-03-02] MEDS: PANTOPRAZOLE 40 MG TABLET.DR PO SCH (08:09)
[2021-03-02] MEDS: METOPROLOL SUCCINATE 25 MG TAB.SR.24H PO SCH (08:09)
[2021-03-02] MEDS: AMIODARONE HCL 200 MG TABLET PO SCH (08:09)
[2021-03-02] MEDS: FAMOTIDINE (20 MG) 20 MG TABLET PO SCH (08:10)
[2021-03-02] MEDS: APIXABAN 5 MG TABLET PO SCH ×2 (08:11→16:49)
[2021-03-02] MEDS: Z GUARD REMEDY 2 OZ OINT TP SCH (08:23)
--- NOTE | 2021-03-02 12:04 | NUR ---
[facility]: SW spoke with Franny ayoub from [facility] ([phone]) (F:[phone]) who stated that they are accepting pt.
--- NOTE | 2021-03-02 12:54 | NUR ---
SW Family Contact: SW contacted patient's son Corey ([phone]) and Karthik ([phone]) and stated pt is accepted at [facility] and family is agreeable with this plan.
[2021-03-02] MEDS ORDERED: QUETIAPINE FUMARATE 25 MG TABLET PO SCH (13:00)
[2021-03-02 14:56] LABS: BASOPHILS # (AUTO) 0.1 K/uL (0.0-0.2); BASOPHILS % (AUTO) 0.8 % (0.0-2.0); EOSINOPHILS % (AUTO) 2.3 % (0.0-6.0); HEMATOCRIT 40 % (33-45); LYMPHOCYTES # (AUTO) 1.8 K/uL (0.8-4.8); LYMPHOCYTES % (AUTO) 27.9 % (20.0-44.0); MEAN CORPUSCULAR HGB CONC 32 g/dl (31.0-36.0); MEAN CORPUSCULAR VOLUME 89 fL (82-100); MONOCYTES # (AUTO) 0.5 K/uL (0.1-1.30); MONOCYTES % (AUTO) 7.8 % (2.0-12.0); NEUTROPHILS % (AUTO) 61.2 % (43.0-81.0); PLATELET COUNT (AUTO) 284 K/uL (150-450); RED BLOOD CELL COUNT(AUTO) 4.49 MIL/uL (4.0-5.2); WHITE BLOOD COUNT (AUTO) 6.6 K/uL (4.3-11.0)
[2021-03-02 15:29] LABS: ALANINE AMINOTRANSFERASE 26 U/L (12-78); ALBUMIN 3.2 g/dL (3.4-5.0); ALKALINE PHOSPHATASE 108 U/L (46-116); ASPARTATE AMINOTRANSFERASE 21 U/L (15-37); BILIRUBIN,TOTAL 0.5 mg/dL (0.2-1.0); CALCIUM, SERUM 9.5 mg/dL (8.5-10.1); CARBON DIOXIDE 26 mmol/L (21-32); CHLORIDE 110 mmol/L (98-107); CREATININE 0.9 mg/dL (0.6-1.3); GLUCOSE 85 mg/dL (74-106); POTASSIUM 3.5 mmol/L (3.5-5.1); SODIUM SERUM 146 mmol/L (136-145); TOTAL PROTEIN, SERUM 6.7 g/dL (6.4-8.2); UREA NITROGEN, BLOOD 19 mg/dL (7-18)
[2021-03-02 15:48] VITALS: BP 134/68
[2021-03-02] MEDS: LATANOPROST EYE DROP 0.005% 2.5 ML BOTTLE EACHEYE SCH (17:01)
[2021-03-02 20:07] VITALS: BP 131/79
[2021-03-02] MEDS: DIGOXIN 0.125 MG TABLET PO SCH (21:38)
[2021-03-02] MEDS ORDERED: OLANZAPINE 10 MG VIAL IM PRN (22:00)
[2021-03-03] MEDS: TEMAZEPAM 7.5 MG CAPSULE PO PRN (01:34)
--- NOTE | 2021-03-03 06:31 | NUR ---
RN NOTES, PATIENT AWAKE AT THIS TIME, SLEEP MOST OF THE NIGHT, HAD SNACK LAST NIGHT, NO SIGNIFICANT CHANGE IN CONDITION, NO EPISODES OF AGITATION/AGGRESSIVE BEHAVIOR NOTED DURING THE NIGHT, DENIES SI/HI, WILL ENDORSE CONTINUITY OF CARE TO ONCOMING NURSE.
[2021-03-03] MEDS: PANTOPRAZOLE 40 MG TABLET.DR PO SCH (07:30)
[2021-03-03 08:00] VITALS: BP 113/61
[2021-03-03] MEDS: QUETIAPINE FUMARATE 25 MG TABLET PO SCH ×3 (08:00→21:22)
[2021-03-03] MEDS: Z GUARD REMEDY 2 OZ OINT TP SCH (09:34)
[2021-03-03] MEDS: METOPROLOL SUCCINATE 25 MG TAB.SR.24H PO SCH (09:41)
[2021-03-03] MEDS: AMIODARONE HCL 200 MG TABLET PO SCH (09:42)
[2021-03-03] MEDS: ASCORBIC ACID 500 MG TABLET PO SCH (09:42)
[2021-03-03] MEDS: MAGNESIUM OXIDE 400 MG TABLET PO SCH ×2 (09:42→17:00)
[2021-03-03] MEDS: FAMOTIDINE (20 MG) 20 MG TABLET PO SCH (09:42)
[2021-03-03] MEDS: LISINOPRIL (5MG) 5 MG TABLET PO SCH (09:43)
[2021-03-03] MEDS: APIXABAN 5 MG TABLET PO SCH ×2 (09:47→17:00)
--- NOTE | 2021-03-03 10:21 | NUR ---
SW Family Contact: SW contacted patient's son Corey ([phone]) and Karthik ([phone]) and notified of patient's discharge for 03/04 to [facility]. They were agreeable with this.
[2021-03-03 16:00] VITALS: BP 135/90
[2021-03-03] MEDS: LATANOPROST EYE DROP 0.005% 2.5 ML BOTTLE EACHEYE SCH (17:15)
--- NOTE | 2021-03-03 20:39 | NUR ---
RN NOTE PATIENT SWABBED FOR COVID-19 AND SPECIMEN SENT TO LAB .
[2021-03-03 20:46] VITALS: BP 122/92
[2021-03-03] MEDS: DIGOXIN 0.125 MG TABLET PO SCH (21:22)
[2021-03-03] MEDS: ACETAMINOPHEN 325 MG TABLET PO PRN (23:06)
[2021-03-04] MEDS: PANTOPRAZOLE 40 MG TABLET.DR PO SCH ×2 (07:30→08:57)
[2021-03-04 08:00] VITALS: BP_SYST 110; BP_SYST 117; BP_DIAS 68; BP_DIAS 76
--- NOTE | 2021-03-04 08:19 | NUR ---
SW Discharge Note: Patient will be discharged to a locked [facility] facility to [facility] located at [address] [place] [address]; ([phone]). Please arrange ambulance transportation. Medical Service Representative spoke with Franny ([phone]), Manufacturing Operations Manager at [facility]; ([phone]), who stated patient will be accepted at facility today. Patient is alert and oriented x1, and is not able to plan for self-care at this time, but is willing to accept care provided for her at the facility. Patient denies any suicidal or homicidal ideations. Patient is aware and agreeable with discharge plans. Patients luciana Angeles ([phone]) and Corey ([phone]) are aware and agreeable with discharge. Patient will continue to follow-up with her (Psychiatrist) Dr. Santhosh Whittaker [place] at [address] [place] [address]; ([phone]) and (Money Room Teller) Dr. Gonsales located at [address] [place] [address]; ([phone]). Patient presents with euthymic mood and congruent affect.
[2021-03-04] MEDS: AMIODARONE HCL 200 MG TABLET PO SCH ×2 (08:56→09:00)
[2021-03-04] MEDS: FAMOTIDINE (20 MG) 20 MG TABLET PO SCH ×2 (08:57→09:00)
[2021-03-04] MEDS: LISINOPRIL (5MG) 5 MG TABLET PO SCH ×2 (08:57→09:00)
[2021-03-04] MEDS: ASCORBIC ACID 500 MG TABLET PO SCH ×2 (08:58→09:00)
[2021-03-04] MEDS: MAGNESIUM OXIDE 400 MG TABLET PO SCH ×2 (08:58→09:00)
[2021-03-04] MEDS: METOPROLOL SUCCINATE 25 MG TAB.SR.24H PO SCH ×2 (08:58→09:00)
[2021-03-04] MEDS: QUETIAPINE FUMARATE 25 MG TABLET PO SCH (08:58)
[2021-03-04] MEDS: APIXABAN 5 MG TABLET PO SCH ×2 (08:59→09:00)
[2021-03-04 09:00] VITALS: BP 117/76
[2021-03-04] MEDS: Z GUARD REMEDY 2 OZ OINT TP SCH (09:45)
--- NOTE | 2021-03-04 10:35 | NUR ---
Dr. Liu gave an order to D/C hold and D/C to [facility], reconciled on meds to continue and to follow up with psych and medical doctors. Discharge papers ready, belongings ready, pt. refused to sign and refused for skin pictures for the skin.
--- NOTE | 2021-03-04 12:19 | NUR ---
Report given to LILLIAN BENJAMIN over the facility.
--- NOTE | 2021-03-04 12:52 | NUR ---
Shin Delgado made aware of the discharge and to continue same meds including prn.
--- NOTE | 2021-03-04 14:25 | NUR ---
Pt. left the unit via ambulance and transported via a gurney with belongings. Pt. left the unit without distress and no agitation. V/S taken: BP 151/87, SD 94, RR 18, temp. 98.3 and oxygen sat 94%.
[2021-03-04] MEDS ORDERED: QUETIAPINE FUMARATE 25 MG TABLET PO SCH (17:00)
[2021-03-05] MEDS ORDERED: QUETIAPINE FUMARATE 25 MG TABLET PO SCH (08:00)
== END 2021-03-04 14:25 | DRG 885 ==
LOC: ER 16:21 → GPS 22:43
PROVIDERS: ADMIT Psychiatry & Neurology Psychosomatic Medicine; ATTEND Nurse Practitioner Acute Care
DX: F25.9 Schizoaffective disorder, unspecified (principal); G92.8 Other toxic encephalopathy; I42.9 Cardiomyopathy, unspecified; G91.2 (Idiopathic) normal pressure hydrocephalus; F29 Unspecified psychosis not due to a substance or known physiological condition; F41.9 Anxiety disorder, unspecified; F03.90 Unspecified dementia, unspecified severity, without behavioral disturbance, psychotic disturbance, mood disturbance, and anxiety; G43.909 Migraine, unspecified, not intractable, without status migrainosus; I10 Essential (primary) hypertension; I27.20 Pulmonary hypertension, unspecified; M79.7 Fibromyalgia; Z95.828 Presence of other vascular implants and grafts; Z86.711 Personal history of pulmonary embolism; Z73.6 Limitation of activities due to disability; E78.5 Hyperlipidemia, unspecified; E78.00 Pure hypercholesterolemia, unspecified; M76.60 Achilles tendinitis, unspecified leg; G89.29 Other chronic pain; E61.1 Iron deficiency; R53.1 Weakness; R27.8 Other lack of coordination; Z91.81 History of falling; G47.00 Insomnia, unspecified; F19.10 Other psychoactive substance abuse, uncomplicated; I48.0 Paroxysmal atrial fibrillation; N28.9 Disorder of kidney and ureter, unspecified; M35.3 Polymyalgia rheumatica; E87.6 Hypokalemia
CPT/HCPCS: 36415; 70450-TC; 70551-TC; 73020; 80048-TC; 80053-TC; 80061-TC; 80076-TC; 80162-TC; 81001; 82962-TC; 83735-TC; 84443-TC; 85025-TC; 86592; 87081-TC; 87086-TC; 97116-TC; 97530-TC; C9803; G0480; J3490